=== PATIENT | female | born 1995 | race African-American/Black ===

== ENCOUNTER 2020-05-27 13:36 | Emergency (ER) | payer OTHER ==
[2020-05-27 14:29] LABS: #Eosinphils 0.1 thou/uL (0.0-0.7); #Lymphocytes 2.2 thou/uL (1.20-3.40); #Monocytes 0.7 thou/uL (0.11-0.59); #Neutrophils 4.9 thou/uL (1.40-6.50); %Basophils 0.4 % (0.0-1.0); %Eosinophils 0.7 % (0.0-10.0); %Lymphocytes 27.4 % (21.0-51.0); %Monocytes 9.4 % (0.0-10.0); %Neutrophils 62.1 % (42.0-75.0); Hemoglobin 12.2 g/dL (12.0-16.0); Mean Corpuscular HGB CONC 33.1 g/dL (32.0-36.0); Mean Corpuscular Hemoglobin 26.9 pg (27.0-31.0); Mean Corpuscular Volume 81.2 fL (78.0-98.0); Mean Platelet Volume 7.1 fL (7.4-10.4); Platelet Count 293 thou/uL (130-400); Red Blood Cell (RBC) Count 4.54 mill/uL (4.20-5.40); White Blood Cell (WBC) Count 7.9 thou/uL (4.8-10.8)
[2020-05-27 14:54] LABS: Bacteria/HPF None Seen HPF (None Seen); Bilirubin Negative (Negative); Blood, Urine Trace (Negative); Clarity Clear (Clear); Glucose, Urine (Dipstick) Normal (Negative); Ketone, Urine 10 mg/dL (Negative); Leukocyte 25 Leu/uL (Negative); Nitrite Negative (Negative); Protein, Urine (Dipstick) Negative (Neg-Trace); Specific Gravity, Urine 1.021 (1.002-1.036); Urobilinogen Normal mg/dL (Less than 2); WBC/HPF 0-3 HPF (0-3); pH, Urine 6.5 (5.0-9.0)
[2020-05-27] MEDS ORDERED: Acetaminophen 500 MG TAB ONE ×2 (15:44→15:45)
--- NOTE | 2020-05-27 15:44 | ULT ---
EXAM: Pelvic ultrasound HISTORY: Pelvic pain in a female COMPARISON: None TECHNIQUE: Multiple grayscale and color Doppler images were obtained in a transabdominal pelvic ultra sound. FINDINGS: UTERUS: There is an intrauterine gestational sac. This contains a yolk sac and pole. Narka-rump length: 5.51 cm which estimates gestational age at 12 weeks 1 day. A heart rate is detected at 163 bpm. No evidence of subchorionic hemorrhage. No free fluid is seen in the pelvis. RIGHT OVARY: Not visualized LEFT OVARY: Not visualized IMPRESSION: Single live intrauterine with estimated age of 12 weeks 1 day.
== END 2020-05-27 17:12 | disposition home or self-care (01) ==
LOC: ERS 13:36
DX: O20.0 Threatened abortion (principal); Z3A.12 12 weeks gestation of pregnancy
CPT/HCPCS: 36415; 76856; 81003; 81015; 84702; 85025; 86900; 86901; 87086